=== PATIENT | male | born 1980 ===

== ENCOUNTER 2020-06-03 17:18 | Emergency (ER) | payer SELFPAY ==
[~2020-06-03] VITALS: Ht 175.3 cm; Wt 72.6 kg
[2020-06-03 17:18] VITALS: Ht 175.3 cm; Wt 72.6 kg
[2020-06-03 18:20] VITALS: BP 140/94
== END 2020-06-03 18:20 | disposition home or self-care (01) ==
LOC: ED 17:18
DX: U07.1 COVID-19 (principal); E78.00 Pure hypercholesterolemia, unspecified
CPT/HCPCS: U0003-CS